=== PATIENT | female | born 1980 | race Two or more races ===

== ENCOUNTER 2016-10-26 15:56 | Emergency (ER) | payer SELFPAY ==
[~2016-10-26] VITALS: Ht 160 cm; Wt 82.0 kg
[2016-10-26] MEDS ORDERED: ONDANSETRON 4MG ODT PO STA (16:35)
[2016-10-26] MEDS ORDERED: DIPHENHYDRAMINE 25MG CAPSULE PO ONE (16:45)
[2016-10-26 17:27] LABS: BASOPHILS % 0.8 % (0.0-2.0); HEMATOCRIT. 37.4 % (36.0-48.0); HEMOGLOBIN. 12.7 g/dL (12.0-16.0); MEAN CORPUSCULAR VOLUME 94.7 fL (81.0-99.0); MEAN PLATELET VOLUME 7.4 fl (7.4-10.4); MONOCYTES % 7.3 % (2.0-8.0); NEUTROPHILS % 69.9 % (40.0-76.0); PLATELET 375 x1000/uL (130-400); RED BLOOD CELL COUNT 3.95 mill/uL (4.2-5.4); RED CELL DISTRIBUTION WIDTH 13.5 % (11.6-14.6)
[2016-10-26 17:29] LABS: CARBON DIOXIDE 24 mEq/L (21-32); CHLORIDE 106 mEq/L (98-107)
[2016-10-26 17:33] LABS: ETHANOL BLOOD < 10 mg/dL
[2016-10-26 17:45] LABS: CLARITY URINE TURBID (CLEAR); COLOR URINE YELLOW (YELLOW); GLUCOSE URINE NEGATIVE (NEGATIVE); KETONES URINE NEGATIVE (NEGATIVE); LEUKOCYTE ESTERASE URINE 2+ (NEGATIVE); NITRITE URINE NEGATIVE (NEGATIVE); OCCULT BLOOD URINE TRACE (NEGATIVE); PROTEIN URINE NEGATIVE (NEGATIVE); SPECIFIC GRAVITY URINE 1.023 (1.005-1.030); UROBILINOGEN URINE 0.2 E.U./dL (0.2-1.0)
[2016-10-26 17:48] LABS: HCG SCREEN NEGATIVE
[2016-10-26 17:54] LABS: *AMPHETAMINES SCREEN URINE NEGATIVE (NEGATIVE); *BARBITURATES SCREEN URINE NEGATIVE (NEGATIVE); *BENZODIAZEPINES SCREEN URINE NEGATIVE (NEGATIVE); *COCAINE SCREEN URINE NEGATIVE (NEGATIVE); METHADONE URINE SCREEN NEGATIVE (NEGATIVE); OPIATES URINE SCREEN NEGATIVE (NEGATIVE); PHENCYCLIDINE URINE SCREEN NEGATIVE (NEGATIVE)
[2016-10-26 17:59] LABS: CANNABINOID URINE SCREEN PRESUMTIVE POSITIVE (NEGATIVE)
[2016-10-26 18:17] VITALS: BP 108/65
== END 2016-10-26 18:32 | disposition home or self-care (01) ==
LOC: ER 16:17
DX: N39.0 Urinary tract infection, site not specified (principal); A59.9 Trichomoniasis, unspecified; R11.2 Nausea with vomiting, unspecified; R42 Dizziness and giddiness; I51.7 Cardiomegaly; F17.200 Nicotine dependence, unspecified, uncomplicated; R20.0 Anesthesia of skin; Z98.890 Other specified postprocedural states
CPT/HCPCS: 36415; 71010; 80053; 80305; 81001; 84703; 85025; 93005; 99285; G0482; Q0162; Q0163